=== PATIENT | male | born 1955 | race Caucasian/White ===

== ENCOUNTER 2017-07-21 17:45 | Emergency (ER) | payer OTHER, BC ==
[2017-07-21] MEDS ORDERED: cefTRIAXone 1,000 MG VIAL IM ONE (18:33)
[2017-07-21] MEDS ORDERED: Diphtheria,Pertussis(Acell),Tetanus Vaccine 0.5 ML SDV IM ONE (18:35)
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
[2017-07-21] MEDS ORDERED: Morphine 10 MG/ML Syringe IM ONE (19:33)
[2017-07-21] MEDS ORDERED: Acetaminophen/HYDROcodone 325-5 MG Tab PO ONE (20:16)
[2017-07-21 20:20] VITALS: BP 141/89
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
== END 2017-07-21 20:17 | disposition home or self-care (01) ==
LOC: FB.ED 17:45
DX: S63.501A Unspecified sprain of right wrist, initial encounter (principal); S60.511A Abrasion of right hand, initial encounter; S50.312A Abrasion of left elbow, initial encounter; I25.10 Atherosclerotic heart disease of native coronary artery without angina pectoris; E78.5 Hyperlipidemia, unspecified; Z23 Encounter for immunization; V89.2XXA Person injured in unspecified motor-vehicle accident, traffic, initial encounter; Y93.55 Activity, bike riding
CPT/HCPCS: 73000; 73030; 73110; 73140; 90471; 90715; 96372; 99284; J0696; J2270; A9270-GY

== ENCOUNTER 2019-11-13 07:49 | Day surgery (SDC) | payer BC ==
[2019-11-13] MEDS ORDERED: Propofol 200 MG/20 ML SDV IV ONE (07:50)
[2019-11-13] MEDS ORDERED: Midazolam 1 MG/ML 2 ML SDV IV ONE (07:50)
[2019-11-13] MEDS ORDERED: Lactated Ringers 1,000 ML IV SCH (08:15)
[2019-11-13] MEDS ORDERED: Sodium Chloride 0.9% 10 ML Syringe FLUSH PRN (08:15)
--- NOTE | 2019-11-13 10:23 | PCM.OPNOTE ---
- General Post-Op/Procedure Note Date of Surgery/Procedure: 11/13/19 Operative Procedure(s): c scope with biopsy Findings: ascending colon polyp hyperplastic Pre Op Diagnosis: screening Post-Op Diagnosis: ascending colon polyp hyperplastic Anesthesia Technique: MAC Primary Surgeon: Henrry Smith Anesthesia Provider: Madalyn Maldonado Pathology: ascending colon polyp hyperplastic Complications: None Condition: Good Free Text/Narrative:: see dictation
[2019-11-13 10:59] VITALS: BP 118/73; PULSE 68
--- NOTE | 2019-11-13 16:32 | OR ---
DATE OF OPERATION: 11/13/2019 SURGEON: Henrry Smith MD PROCEDURE PERFORMED: Colonoscopy with cold forceps biopsy. PREOPERATIVE DIAGNOSIS: Need for screening C-scope. POSTOPERATIVE DIAGNOSIS: Ascending colon polyp. INDICATIONS FOR PROCEDURE: This is a 64-year-old white male who presents for screening colonoscopy. He was offered and accepted same. DESCRIPTION OF OPERATION: After an excellent IV sedation was administered, digital rectal exam was performed. No marked abnormality was noted. Flexible colonoscope was inserted and advanced to the cecum. Prep was excellent. The following findings were noted. Ascending colon, just above the cecum, hyperplastic-appearing polyp approximately a mm in size, biopsied and submitted in 1 container. Transverse colon, unremarkable. Descending colon, unremarkable. Sigmoid and rectum, unremarkable. The colon was deflated, scope was removed. The patient tolerated the procedure well. Results will be sent to the patient by letter. /[id number] /DAYANAL
== END 2019-11-13 10:54 | disposition home or self-care (01) ==
LOC: FB.SDS 07:49
PROVIDERS: ATTEND Surgery
DX: Z12.11 Encounter for screening for malignant neoplasm of colon (principal); K63.5 Polyp of colon; I25.10 Atherosclerotic heart disease of native coronary artery without angina pectoris; E78.00 Pure hypercholesterolemia, unspecified; K21.0 Gastro-esophageal reflux disease with esophagitis; E66.9 Obesity, unspecified; Z68.38 Body mass index [BMI] 38.0-38.9, adult; Z79.82 Long term (current) use of aspirin; Z79.01 Long term (current) use of anticoagulants; Z79.899 Other long term (current) drug therapy; Z91.030 Bee allergy status; Z88.8 Allergy status to other drugs, medicaments and biological substances; Z95.5 Presence of coronary angioplasty implant and graft
CPT/HCPCS: 88305; J2250; J2704; J7120

== ENCOUNTER 2022-09-03 12:57 | Emergency (ER) | payer BC, MEDICARE ==
[2022-09-03] MEDS ORDERED: Cephalexin 500 MG Cap PO ONE (12:58)
[2022-09-03] MEDS ORDERED: Diphtheria,Pertussis(Acell),Tetanus Vaccine 0.5 ML Syringe IM ONE (13:39)
[2022-09-03 17:38] VITALS: BP 131/84; PULSE 64
== END 2022-09-03 14:13 | disposition home or self-care (01) ==
LOC: FB.ED 12:57
DX: H02.9 Unspecified disorder of eyelid (principal); E66.9 Obesity, unspecified; Z68.36 Body mass index [BMI] 36.0-36.9, adult; Z79.899 Other long term (current) drug therapy; Z88.8 Allergy status to other drugs, medicaments and biological substances; Z91.030 Bee allergy status; Z79.82 Long term (current) use of aspirin; Z90.49 Acquired absence of other specified parts of digestive tract; Z23 Encounter for immunization
CPT/HCPCS: 90471; 90715; 99283; A9270